=== PATIENT | male | born 1965 | race Caucasian/White ===

== ENCOUNTER 2016-09-30 00:35 | Emergency (ER) | payer MEDICARE, OTHER | END 2016-09-30 06:30 | disposition home or self-care (01) | LOC: ER1 00:35 | DX: M54.5 Low back pain (principal); M54.6 Pain in thoracic spine; G89.29 Other chronic pain; M25.561 Pain in right knee; M43.25 Fusion of spine, thoracolumbar region; I10 Essential (primary) hypertension; F17.210 Nicotine dependence, cigarettes, uncomplicated; Z88.6 Allergy status to analgesic agent; Z90.49 Acquired absence of other specified parts of digestive tract | CPT/HCPCS: 72128; 72131; 73564; 96372; 99284; J2270; J3360 ==